=== PATIENT | female | born 1965 | race Two or more races ===

== ENCOUNTER 2018-09-09 05:33 | Emergency (ER) ==
[~2018-09-09] VITALS: Ht 162.6 cm; Wt 72.6 kg
[2018-09-09 05:33] VITALS: BP 156/94
[2018-09-09] MEDS ORDERED: KETOROLAC TROMETHAMINE 15 MG/ML VIAL ONE (05:57)
[2018-09-09] MEDS ORDERED: KETOROLAC TROMETHAMINE INJ 30 MG/ML VIAL IM ONE (06:00)
[2018-09-09] MEDS ORDERED: BACITRACIN ZINC OINT PACKET 1 EA PACKET TP ONE (06:00)
--- NOTE | 2018-09-09 06:04 | NUR ---
bibra [id number] for c/o bilat' leg pain x 3 days, vs stable, placed on er bed 14, seen by dr rascon, orders entered and carried out.
== END 2018-09-09 06:36 | disposition home or self-care (01) ==
LOC: ER 05:39 → EDSEX 05:39 → ER 06:36
DX: L97.329 Non-pressure chronic ulcer of left ankle with unspecified severity (principal); L97.319 Non-pressure chronic ulcer of right ankle with unspecified severity; M25.562 Pain in left knee; M25.561 Pain in right knee; Z59.0 Homelessness
CPT/HCPCS: 96372; 99283; J1885